=== PATIENT | female | born 1975 | race Caucasian/White ===

== ENCOUNTER → 2023-06-25 13:50 | Outpatient (REF) | payer BC, SELFPAY | LOC: HWWDC 13:50 | PROVIDERS: ATTENDING PHYSICIAN Obstetrics & Gynecology; FAMILY PHYSICIAN Family Medicine | DX: Z12.31 Encounter for screening mammogram for malignant neoplasm of breast (principal) | CPT/HCPCS: 77063; 77067 ==

== ENCOUNTER → 2024-03-03 09:51 | Outpatient (REF) | payer BC, SELFPAY | LOC: HWCARD 09:51 | PROVIDERS: ATTENDING PHYSICIAN Nurse Practitioner Family | DX: R03.0 Elevated blood-pressure reading, without diagnosis of hypertension (principal) | CPT/HCPCS: 93005 ==

== ENCOUNTER → 2024-10-28 15:36 | Outpatient (REF) | payer BC, SELFPAY | LOC: HWRAD 15:36 | PROVIDERS: ATTENDING PHYSICIAN Nurse Practitioner Primary Care; FAMILY PHYSICIAN Nurse Practitioner Family | DX: M25.552 Pain in left hip (principal); S76.012A Strain of muscle, fascia and tendon of left hip, initial encounter; S79.912A Unspecified injury of left hip, initial encounter | CPT/HCPCS: 73523 ==